=== PATIENT | female | born 1985 | race Caucasian/White ===

== ENCOUNTER 2017-01-28 13:29 | Observation (INO) | payer OTHER ==
--- NOTE | ~2017-01-28 | OP ---
Record Of Operation [facility] [address] [place]. [address] NAME: KAISER SARAVIA : 87 STATUS : ADM Hung PAT#: [id number] AGE: 31 ADM/REG DATE : 01/28/17 MR#: [id number] REPORT SERV DATE: 01/28/17 DICTATED BY: MAGALY ESTEVEZ JR. DATE: 01/28/17 REPORT STATUS : Draft TRANSCRIBED BY: JOSE DATE: 01/28/17 DATE OF PROCEDURE: 01/28/2017 ORAL HYGIENIST: Ronald Denis. PROCEDURE: Feeding jejunostomy tube placement. PREOPERATIVE DIAGNOSIS: Malnutrition. POSTOPERATIVE DIAGNOSIS: Malnutrition. ANESTHESIA: General. INDICATIONS: The patient presents with profound weight loss and protein-calorie malnutrition. She has been seen by GI. It was felt that the feeding J tube is indicated for enteral nutritional support to facilitate weight gain and system recovery. FINDINGS: There were no specific unusual findings during the procedure. DESCRIPTION OF PROCEDURE: With adequate general anesthesia, the patient was placed in supine position. The abdomen was prepped and draped sterilely. A supraumbilical incision was made. The dissection was carried down sharply through the subcutaneous tissues. The fascia was opened and the peritoneal cavity was entered. The small bowel was identified and this was oriented so that the proximal jejunum was able to be clearly identified. The site was selected where a pursestring suture of 3-0 silk was placed. A jejunostomy was made and a 16 [place] T-Tube was placed into the bowel. This was brought out through the left-sided stab incision where it was secured to the skin with a silk suture. The jejunum was sewed to the overlying perineum with suture of 3-0 silk. This produced satisfactory anchoring and the midline incision was closed with a running 2-0 PDS, subcutaneous Vicryl and subcuticular Monocryl. Sterile dressings were applied. The patient left the operating room in satisfactory condition. Estimated blood loss was 10 mL. DANII/JOSE Magaly Estevez Jr., M.D. / [id number] CC: Magaly Estevez Jr., M.D.
[2017-01-28 13:22] LABS: BASOPHILS 0.4 %; BASOPHILS ABSOLUTE 0.02 10/3/uL (0.0-0.16); EOSINOPHILS 4.6 %; EOSINOPHILS ABSOLUTE 0.24 10/3/uL (0.0-0.53); HEMATOCRIT 37.5 % (36.0-48.0); HEMOGLOBIN 12.9 g/dL (12.0-16.0); LYMPHOCYTES ABSOLUTE 1.56 10/3/uL (0.67-4.30); MANUAL DIFF NO %; MEAN CORPUS HGB CONC 34.4 g/dL (32.0-36.0); MEAN CORPUSCULAR HEMOGLOB 32.2 pg (26.0-34.0); MEAN CORPUSCULAR VOLUME 93.5 fL (80-100); MONOCYTES 3.3 %; MONOCYTES ABSOLUTE 0.17 10/3/uL (0.21-1.20); NEUTROPHILS 61.7 %; NEUTROPHILS ABSOLUTE 3.21 10/3/uL (2.02-8.40); PLATELET COUNT 168 10/3/uL (150-400); RBC DISTRIBUTION WIDTH 12.5 % (12.0-16.0); RED CELL COUNT 4.01 10/6/uL (4.0-5.6); WHITE BLOOD CELLS 5.2 10/3/uL (4.5-10.5)
[~2017-01-28 13:29] MED LIST: ATV.5 PO
[2017-01-28 13:35] LABS: BUN (BLOOD UREA NITROGEN) 11 MG/DL (6-23); CALCIUM, SERUM 9.3 MG/DL (8.5-10.4); CHLORIDE, SERUM 107 MMOL/L (96-112); CO2 (CARBON DIOXIDE) 30 MMOL/L (24-34); CREATININE 0.73 MG/DL (0.55-1.02); GFR AFRICAN AMERICAN 128 ML/MIN (>=60); GFR NON AFRICAN AMERICAN 111 ML/MIN (>=60); GLUCOSE, SERUM 87 MG/DL (60-99); POTASSIUM, SERUM 3.9 MMOL/L (3.5-5.3); SODIUM, SERUM 139 MMOL/L (135-148)
[2017-01-29 06:34] LABS: BASOPHILS 0.1 %; BASOPHILS ABSOLUTE 0.01 10/3/uL (0.0-0.16); EOSINOPHILS 0.1 %; EOSINOPHILS ABSOLUTE 0.01 10/3/uL (0.0-0.53); HEMATOCRIT 35.4 % (36.0-48.0); HEMOGLOBIN 11.8 g/dL (12.0-16.0); IMMATURE GRANULOCYTES 0.1 %; IMMATURE GRANULOCYTES ABSOLUTE 0.01 10/3/uL (0.0-0.11); LYMPHOCYTES 15.7 %; LYMPHOCYTES ABSOLUTE 1.13 10/3/uL (0.67-4.30); MEAN CORPUS HGB CONC 33.3 g/dL (32.0-36.0); MEAN CORPUSCULAR HEMOGLOB 31.8 pg (26.0-34.0); MEAN CORPUSCULAR VOLUME 95.4 fL (80-100); MEAN PLATELET VOLUME 9.9 fL (9.2-13.0); MONOCYTES 4.2 %; NEUTROPHILS 79.8 %; NEUTROPHILS ABSOLUTE 5.74 10/3/uL (2.02-8.40); PLATELET COUNT 161 10/3/uL (150-400); RBC DISTRIBUTION WIDTH 12.4 % (12.0-16.0); RED CELL COUNT 3.71 10/6/uL (4.0-5.6); WHITE BLOOD CELLS 7.2 10/3/uL (4.5-10.5)
[2017-01-29 06:38] LABS: MANUAL DIFF NO %
[2017-01-29 06:43] LABS: A/G RATIO 1.1 (0.7-1.9); ALBUMIN 3.3 G/DL (3.5-5.0); ALKALINE PHOSPHATASE 44 U/L (45-117); BUN (BLOOD UREA NITROGEN) 8 MG/DL (6-23); CALCIUM, SERUM 8.9 MG/DL (8.5-10.4); CHLORIDE, SERUM 108 MMOL/L (96-112); CO2 (CARBON DIOXIDE) 28 MMOL/L (24-34); CREATININE 0.79 MG/DL (0.55-1.02); GFR AFRICAN AMERICAN 116 ML/MIN (>=60); GFR NON AFRICAN AMERICAN 100 ML/MIN (>=60); GLOBULIN 2.9 G/DL (2.5-4.1); GLUCOSE, SERUM 120 MG/DL (60-99); POTASSIUM, SERUM 4.6 MMOL/L (3.5-5.3); PREALBUMIN 20.2 MG/DL (17.0-43.0); SGOT(AST) 19 U/L (5-40); SGPT(ALT) 26 U/L (5-65); SODIUM, SERUM 142 MMOL/L (135-148); TOTAL BILIRUBIN 0.4 MG/DL (0-1.2); TOTAL PROTEIN 6.2 G/DL (6.0-8.5)
[2017-01-29] MEDS ORDERED: PCET PO (16:34)
== END 2017-01-29 19:55 | disposition home or self-care (01) ==
LOC: SDC/OF 13:29 → PACU 15:23 → 5SO 17:11
PROVIDERS: Specialist
PROC: 0DHA0UZ Insertion of Feeding Device into Jejunum, Open Approach (ICD-10-PCS; principal; 2017-01-28 14:30)
DX: E46 Unspecified protein-calorie malnutrition (principal); F41.9 Anxiety disorder, unspecified; Z88.8 Allergy status to other drugs, medicaments and biological substances; Z98.890 Other specified postprocedural states; Z79.899 Other long term (current) drug therapy; J45.909 Unspecified asthma, uncomplicated; Z98.51 Tubal ligation status; Z87.891 Personal history of nicotine dependence
CPT/HCPCS: 71010; 80048; 80053; 82962; 83735; 84134; 84703; 85025; 96374; 96375; 96376; A9270-GY; G0378; J0690; J2250; J2270; J2405; J3010